=== PATIENT | male | born 1945 | race American Indian/Alaskan Native ===

== ENCOUNTER 2020-07-26 11:53 | Emergency (ER) | payer MEDICARE ==
--- NOTE | 2020-07-26 12:22 | Event Note ---
ED Screening Note ED Screening Note: pt presents with right leg swelling and pain for one week denies any CP, SOB, numbness pmhx htn, hld, dm pt works for [employer] and drives frequently no recent surgery no fall or injury significant swelling/no palpable pulses This initial assessment/diagnostic orders/clinical plan/treatment(s) is/are subject to change based on patients health status, clinical progression and re- assessment by fellow clinical providers in the ED. Further treatment and workup at subsequent clinical providers discretion. Patient/guardian urged not to elope from the ED as their condition may be serious if not clinically assessed and managed. Initial orders include: labs, US
--- NOTE | 2020-07-26 13:34 | Vascular Lab Report ---
DUPLEX DOPPLER LOWER EXTREMITY ARTERIAL, RIGHT INDICATION / CLINICAL INFORMATION: right leg swelling/pain. TECHNIQUE: Arterial duplex examination of the right lower extremity performed using B-mode, color beena w and spectral Doppler assessment. FINDINGS: RIGHT: Common Femoral Artery: PSV 79 cm/sec. Triphasic waveform. Proximal SFA: PSV 84 cm/sec. Triphasic waveform. Mid SFA: PSV 101 cm/sec. Triphasic waveform. Distal SFA: PSV 79 cm/sec. Triphasic waveform. Popliteal artery: PSV 68 cm/sec. Triphasic waveform. Posterior tibial artery: PSV 53 cm/sec. Biphasic waveform. Dorsalis Pedis Artery: Not visualized. IMPRESSION: 1. No significant right lower extremity peripheral artery disease. Ankle-Brachial Index (SA[place]YER): - Calcified arteries > 1.4 - Normal = 0.9-1.4 - Mild PAD = 0.7-0.89 - Moderate PAD = 0.51-0.69 - Severe PAD < 0.5 Doppler Waveform: - Triphasic is normal. - Biphasic is abnormal if clear transition from triphasic signal along vascular tree. - Monophasic is abnormal. Signer Name: Vishnu Burnett MD Signed: 07/26/2020 1:29 PM Workstation Name: [id number]
--- NOTE | 2020-07-26 13:34 | Vascular Lab Report ---
DUPLEX DOPPLER LOWER EXTREMITY VEINS, RIGHT INDICATION / CLINICAL INFORMATION: right leg swelling, pain. TECHNIQUE: Duplex doppler imaging was performed through the veins of the right lower extremity using venous comp ression and other maneuvers. COMPARISON: None available. FINDINGS: RIGHT COMMON FEMORAL VEIN: Negative. RIGHT FEMORAL VEIN: Negative. RIGHT POPLITEAL VEIN: Negative. RIGHT CALF VEINS: Negative. ADDITIONAL FINDINGS: None. IMPRESSION: 1. No sonographic evidence for DVT in the right lower extremity. Signer Name: Vishnu Burnett MD Signed: 07/26/2020 1:30 PM Workstation Name: [id number]
--- NOTE | 2020-07-26 13:38 | Emergency Department Report ---
HPI - General Chief Complaint: Extremity Injury, Lower Time Seen by Provider: 07/26/20 12:19 - HPI HPI: This is a 74-year-old -[place] male who presents to the emergency department with complaint of a 1 week history of right lower extremity swelling. Patient says that he had COVID-19 about 2 to 3 months ago. He just had his Covid vaccination about 3 weeks ago and says that this started about 1.5 weeks after that. He denies any pain, skin color change, rash or lesions. He tried using some ice and has been wearing a knee brace. He says that the swelling will go away but then "it pops right back up again." He has a past medical history of hypertension and diabetes. He went to see his PCP, Kristie Orourke, this morning and was sent over to the emergency department for further evaluation. ED Past Medical Hx - Past Medical History Previous Medical History?: No - Surgical History Past Surgical History?: Yes Additional Surgical History: FOOT - Social History Smoking Status: Never Smoker ED Review of Systems ROS: Stated complaint: SWOLLEN ANKLE AND RT FOOT Other details as noted in HPI Comment: All other systems reviewed and negative Constitutional: denies: chills, fever Eyes: denies: eye pain, vision change ENT: denies: ear pain, throat pain Respiratory: denies: cough, shortness of breath Cardiovascular: edema. denies: chest pain Gastrointestinal: denies: abdominal pain, vomiting Genitourinary: denies: dysuria, discharge Musculoskeletal: joint swelling. denies: arthralgia, myalgia Skin: denies: rash, lesions Neurological: denies: numbness, paresthesias Physical Exam - Physical Exam Vital Signs: Vital Signs 07/26/20 12:11 Temperature 97.8 F Pulse Rate 78 Respiratory 20 Rate Blood Pressure 127/82 O2 Sat by Pulse 99 Oximetry Physical Exam: GENERAL: The patient is well-developed well-nourished. HENT: Normocephalic. Atraumatic. Patient has moist mucous membranes. EYES: Extraocular motions are intact. NECK: Supple. Trachea is midline. CHEST/LUNGS: Clear to auscultation. There is no respiratory distress noted. HEART/CARDIOVASCULAR: Regular. There is no tachycardia. There is no murmur. ABDOMEN: Abdomen is soft, nontender. Patient has normal bowel sounds. There is no abdominal distention. SKIN: Skin is warm and dry. There is moderate nonpitting swelling to the right lower extremity from the proximal tib-fib distally through the foot. No erythema, warmth, rash or lesions. NEURO: The patient is awake, alert, and oriented. The patient is cooperative. The patient has no focal neurologic deficits. Normal speech. MUSCULOSKELETAL: There is no tenderness or deformity. There is no limitation range of motion. Capillary refill less than 2 seconds to the affected right lower extremity. ED Course Vital Signs 07/26/20 12:11 Temperature 97.8 F Pulse Rate 78 Respiratory 20 Rate Blood Pressure 127/82 O2 Sat by Pulse 99 Oximetry ED Medical Decision Making - Lab Data Result diagrams: 07/26/20 13:07/26/20 13: Lab Results 07/26/20 07/26/20 07/26/20 Range/Units 13:21 13:21 13:21 WBC 8.7 (4.5-11.0) K/mm3 RBC 3.91 (3.65-5.03) M/mm3 Hgb 12.1 (11.8-15.2) gm/dl Hct 35.2 L (35.5-45.6) % MCV 90 (84-94) fl MCH 31 (28-32) pg MCHC 34 (32-34) % RDW 14.6 (13.2-15.2) % Plt Count 389 (140-440) K/mm3 Lymph % (Auto) 26.7 (13.4-35.0) % Stewart % (Auto) 7.1 (0.0-7.3) % Eos % (Auto) 2.8 (0.0-4.3) % Baso % (Auto) 1.1 (0.0-1.8) % Lymph # (Auto) 2.3 (1.2-5.4) K/mm3 Stewart # (Auto) 0.6 (0.0-0.8) K/mm3 Eos # (Auto) 0.2 (0.0-0.4) K/mm3 Baso # (Auto) 0.1 (0.0-0.1) K/mm3 Seg Neutrophils % 62.3 (40.0-70.0) % Seg Neutrophils # 5.4 (1.8-7.7) K/mm3 PT 13.1 (12.2-14.9) Sec. INR 1.01 (0.87-1.13) APTT 24.5 (24.2-36.6) Sec. Sodium 144 (137-145) mmol/L Potassium 4.1 (3.6-5.0) mmol/L Chloride 104.6 (98-107) mmol/L Carbon Dioxide 27 (22-30) mmol/L Anion Gap 17 mmol/L BUN 16 (9-20) mg/dL Creatinine 2.2 H (0.8-1.3) mg/dL Estimated GFR 35 ml/min BUN/Creatinine Ratio 7 % Glucose 224 H (75-100) mg/dL Calcium 10.1 (8.4-10.2) mg/dL Total Bilirubin 0.40 (0.1-1.2) mg/dL AST 38 (5-40) units/L ALT 21 (7-56) units/L Alkaline Phosphatase 46 (35-129) units/L NT-Pro-B Natriuret Pep 131.7 (0-900) pg/mL Total Protein 6.9 (6.3-8.2) g/dL Albumin 4.4 (3.9-5) g/dL Albumin/Globulin Ratio 1.8 % - Radiology Data Radiology results: report reviewed DUPLEX DOPPLER LOWER EXTREMITY ARTERIAL, RIGHT INDICATION / CLINICAL INFORMATION: right leg swelling/pain. TECHNIQUE: Arterial duplex examination of the right lower extremity performed using B-mode, color flow and spectral Doppler assessment. FINDINGS: RIGHT: Common Femoral Artery: PSV 79 cm/sec. Triphasic waveform. Proximal SFA: PSV 84 cm/sec. Triphasic waveform. Mid SFA: PSV 101 cm/sec. Triphasic waveform. Distal SFA: PSV 79 cm/sec. Triphasic waveform. Popliteal artery: PSV 68 cm/sec. Triphasic waveform. Posterior tibial artery: PSV 53 cm/sec. Biphasic waveform. Dorsalis Pedis Artery: Not visualized. IMPRESSION: 1. No significant right lower extremity peripheral artery disease. DUPLEX DOPPLER LOWER EXTREMITY VEINS, RIGHT INDICATION / CLINICAL INFORMATION: right leg swelling, pain. TECHNIQUE: Duplex doppler imaging was performed through the veins of the right lower extremity using venous compression and other maneuvers. COMPARISON: None available. FINDINGS: RIGHT COMMON FEMORAL VEIN: Negative. RIGHT FEMORAL VEIN: Negative. RIGHT POPLITEAL VEIN: Negative. RIGHT CALF VEINS: Negative. ADDITIONAL FINDINGS: None. IMPRESSION: 1. No sonographic evidence for DVT in the right lower extremity. - Medical Decision Making This patient presents to the emergency department with a complaint of atraumatic right lower extremity swelling, from the knee distally, that has been going on for the past 1 -1.5 weeks. On examination the patient does have mild to moderate swelling in that area, but there is no erythema, warmth, skin color change, rash or lesions. There is no tenderness to palpation to the tib-fib, calf, ankle or foot and the patient has full range of motion. He was sent for a venous Doppler ultrasound and an arterial ultrasound of the right lower extremity. There was no evidence of DVT or any evidence of peripheral arterial disease of the right lower extremity. His labs have been unremarkable including CBC, metabolic panel, BNP, coags, except for renal insufficiency. The patient says that he does have a history of chronic kidney disease for which she is followed by a whipper beater. Based on the lab work and imaging done today, the patient does not appear to have a DVT, arterial insufficiency, congestive heart failure. The patient is able to bear weight and ambulate. He does not appear to have any emergency medical condition that requires transfer or admission. He has been instructed to return for follow-up with his primary care physician. However, the patient has also been instructed to return to the emergency department with any increased swelling, skin color changes, development of pain, development of weakness, or with any acute distress. He understands and agrees to the plan. Critical Care Time: No Critical care attestation.: If time is entered above; I have spent that time in minutes in the direct care of this critically ill patient, excluding procedure time. ED Disposition Clinical Impression: Swelling of right lower extremity Disposition: DC-01 TO HOME OR SELFCARE Is pt being admited?: No Condition: Stable Instructions: Peripheral Edema Additional Instructions: The venous Doppler ultrasound done today did not show any evidence of a blood clot in your leg. The arterial ultrasound done today did not show any evidence of any blockage or decreased arterial blood flow. Your labs were unremarkable except for decreased kidney function, which you told me is chronic for you. I recommend that you get a compression stocking for that leg. I do not want you to be immobile, but when you are resting at home you can keep your leg propped up/elevated on a few pillows. Please make sure you are seen immediately with any increased swelling, development of pain in the leg or foot, skin color changes, or with any acute distress. Please follow-up with your primary care physician on Tuesday as previously scheduled. Referrals: KRISTIE OROURKE NP-C [Referring] - 07/28/20 Time of Disposition: 15:00
[2020-07-26 14:11] LABS: Albumin 4.4 g/dL (3.9-5); Calcium 10.1 mg/dL (8.4-10.2)
[2020-07-26 14:32] LABS: Basophils # (Auto) 0.1 K/mm3 (0.0-0.1); Basophils % (Auto) 1.1 % (0.0-1.8); Eosinophils # (Auto) 0.2 K/mm3 (0.0-0.4); Eosinophils % (Auto) 2.8 % (0.0-4.3); Hematocrit 35.2 % (35.5-45.6); Hemoglobin 12.1 gm/dl (11.8-15.2); Lymphocytes # (Auto) 2.3 K/mm3 (1.2-5.4); Lymphocytes % (Auto) 26.7 % (13.4-35.0); Mean Corpuscular HGB Conc 34 % (32-34); Mean Corpuscular Volume 90 fl (84-94); Monocytes # (Auto) 0.6 K/mm3 (0.0-0.8); Monocytes % (Auto) 7.1 % (0.0-7.3); Platelet Count 389 K/mm3 (140-440); Red Blood Count 3.91 M/mm3 (3.65-5.03); Red Cell Distribution Width 14.6 % (13.2-15.2)
[2020-07-26 14:39] LABS: INR 1.01 (0.87-1.13)
[2020-07-26 14:40] LABS: Partial Thromboplastin Time 24.5 Sec. (24.2-36.6)
[2020-07-26 20:40] VITALS: BP 131/78
== END 2020-07-26 15:22 | disposition home or self-care (01) ==
LOC: ED 11:53
DX: M79.89 Other specified soft tissue disorders (principal); Z98.890 Other specified postprocedural states
CPT/HCPCS: 36415; 80053; 83880; 85025; 85610; 85730